=== PATIENT | female | born 1950 | race Caucasian/White ===

== ENCOUNTER 2017-07-13 07:54 | Day surgery (SDC) | payer MEDICARE, BC ==
[~2017-07-13] VITALS: Ht 162.6 cm; Wt 59.4 kg
[~2017-07-13 07:54] MED LIST: BISOPROLOL FUMA10 MG PO; CELLCEPT500 MG PO; CO Q-10200 MG PO; COLESTID1 GM PO; COUMADIN ** IA5 MG PO; DELTASONE5 MG PO; LASIX40 MG PO; LEXAPRO10 MG PO; NEURONTIN300 MG PO; PRINIVIL (ZESTRI5 MG PO; PROTONIX40 MG PO; VITAMIN A10000 UNIT PO; VITAMIN D-32000 UNI1 PO
[2017-07-13 08:35] LABS: INR - (THERAPEUTIC) 0.98 (0.92-1.07); PROTIME 10.3 SECONDS (9.8-11.4)
== END 2017-07-13 11:05 | disposition disaster alternative care site (69) ==
LOC: GSIP 07:54 → GEND 07:54 → GPOC 08:00 → GEND 11:05
PROVIDERS: Internal Medicine Gastroenterology
PROC: 0DBG8ZX Excision of Left Large Intestine, Via Natural or Artificial Opening Endoscopic, Diagnostic (ICD-10-PCS; principal; 2017-07-13)
PROC: 0DBF8ZX Excision of Right Large Intestine, Via Natural or Artificial Opening Endoscopic, Diagnostic (ICD-10-PCS; 2017-07-13)
DX: K57.30 Diverticulosis of large intestine without perforation or abscess without bleeding (principal); K64.8 Other hemorrhoids; K52.9 Noninfective gastroenteritis and colitis, unspecified; I10 Essential (primary) hypertension; E78.00 Pure hypercholesterolemia, unspecified; M19.90 Unspecified osteoarthritis, unspecified site; M85.80 Other specified disorders of bone density and structure, unspecified site; F41.9 Anxiety disorder, unspecified; F32.9 Major depressive disorder, single episode, unspecified; Z90.49 Acquired absence of other specified parts of digestive tract; Z98.890 Other specified postprocedural states; Z88.1 Allergy status to other antibiotic agents; Z79.899 Other long term (current) drug therapy
CPT/HCPCS: J2001; J7030